=== PATIENT | male | born 1960 | race Caucasian/White ===

== ENCOUNTER 2017-03-24 21:57 | Emergency (ER) | payer OTHER ==
[~2017-03-24] VITALS: Ht 185.4 cm; Wt 90.0 kg
[2017-03-24 22:20] VITALS: BP 153/96; PULSE 69; RESP 14; TEMP 97.6; O2SAT 96
--- NOTE | 2017-03-24 22:41 | PD ---
HPI Chief Complaint: Alcohol/Drug Intoxication Time Seen by Provider: 22:34 Travel History International Travel<30 days: No Contact w/Intl Traveler<30days: No Traveled to known affect area: No History of Present Illness HPI 56-year-old white male homeless alcoholic presents to emergency department from [facility] under a [place] act. He was inside the hospital earlier for unknown medical evaluation and opted to leave the facility. He made contact with police on the premises and was placed under a [place] act because of his alcohol intoxication. It is unclear why they did not bring him back and side for evaluation under his Marchman act at [facility] rather than bring in the patient here to [facility]. The patient is not a [place] act. He denies any suicidal or homicidal ideation. He admits to alcohol intoxication. He denies any trauma. He states that he has abrasions to his arms and legs from walking through the [place]. Patient denies any chest pain, shortness of breath, nausea, vomiting, abdominal pain or urine symptoms. [facility] Past Medical History Narrative Medical Chronic alcohol abuse, hepatitis C, IV drug abuse, hernia Tetanus Vaccination: < 5 Years Past Surgical History Narrative Surgical Herniorrhaphy Social History Alcohol Use: Yes Tobacco Use: Yes Substance Use: Yes (smokes crack cocaine, IV Dilaudid, alcohol abuse) Allergies-Medications (Allergen,Severity, Reaction): Coded Allergies: No Known Allergies (Unverified , 03/24/17) Reported Meds & Prescriptions Reported Meds & Active Scripts Active No Active Prescriptions or Reported Medications Review of Systems ROS Limitations: Intoxication Except as stated in HPI: all other systems reviewed are Neg Physical Exam Narrative GENERAL: Well-nourished, well-developed patient. Slurred speech and appears intoxicated. SKIN: Patient has bruises in various stages of healing. He has some recent superficial abrasions to his right arm and lower legs. No signs of any lacerations or deep injury. No signs of infection. HEAD: Normocephalic and atraumatic. EYES: No scleral icterus. No injection or drainage. ENT: No nasal drainage noted. Mucous membranes pink. Airway patent. NECK: Supple, trachea midline. Moves head freely without obvious discomfort. CARDIOVASCULAR: Regular rate and rhythm without murmurs, gallops, or rubs. RESPIRATORY: Breath sounds equal bilaterally. No accessory muscle use. GASTROINTESTINAL: Abdomen soft, non-tender, nondistended. EXTREMITIES: No cyanosis or edema. BACK: Nontender without obvious deformity. No CVA tenderness. NEURO: Patient is alert and oriented. no sensorimotor deficits. Nonfocal. Slurred speech. Ataxic gait. PSYCH: No delusions. No auditory or visual hallucinations. Data Data Last Documented VS Vital Signs Date Time Temp Pulse Resp B/P Pulse Ox O2 Delivery O2 Flow Rate FiO2 03/24/17 22:25 69 14 96 Room Air 03/24/17 22:20 97.6 153/96 [facility] Medical Decision Making Medical Screen Exam Complete: Yes Emergency Medical Condition: Yes Medical Record Reviewed: Yes Differential Diagnosis Differential diagnoses: Alcohol intoxication, substance abuse, electrolyte abnormality, malingering Narrative Course The patient is here under act. He has no medical complaints. It is unclear why he was not brought back into [facility] under his act rather than coming to [facility]. The patient will be allowed to sober appear in the ER and once he exhibits sobriety is act will be lifted and he will be discharged. Diagnosis Primary Impression: Alcohol intoxication Qualified Code: F10.920 - Alcohol intoxication, uncomplicated Additional Impression: [place] act Patient Instructions: General Instructions Additional Instructions: Rest. Increase fluids. Avoid alcohol. Avoid illegal substances. Daily wound care with soap, water, Neosporin. Follow-up with [facility] for detox. Do not operate a car or any heavy machinery under the influence of alcohol or drugs. Follow-up with a medical doctor this week. Return to the ER for emergencies Med/Other Pt SpecificInfo: No Meds Exist/No RX given Scripts No Active Prescriptions or Reported Meds Disposition: 01 DISCHARGE HOME Condition: Stable Jayme Hernandez Mar 24, 2017 22:41
[2017-03-25] MEDS ORDERED: diphenhydrAMINE HCL 50 MG/ML VIAL ONE (01:13)
[2017-03-25] MEDS ORDERED: HALOPERIDOL LACTATE 5 MG/ML AMP ONE (01:13)
[2017-03-25] MEDS ORDERED: diphenhydrAMINE HCL 50 MG/ML VIAL IM ONE (01:15)
[2017-03-25] MEDS ORDERED: HALOPERIDOL LACTATE 5 MG/ML AMP IM ONE (01:15)
== END 2017-03-25 06:40 | disposition home or self-care (01) ==
LOC: NEPD 21:57
DX: F10.920 Alcohol use, unspecified with intoxication, uncomplicated (principal); Z72.0 Tobacco use
CPT/HCPCS: 96372; 99284; J1200; J1630